=== PATIENT | male | born 1945 | race Caucasian/White ===

== ENCOUNTER 2016-10-27 09:55 | Emergency (ER) | payer MEDICARE ==
[~2016-10-27] VITALS: Ht 188 cm; Wt 81.8 kg
[~2016-10-27 09:55] MED LIST: ASPIRIN 81M81 MG/TA2 PO; BYSTOLIC10 MG PO; PRINIVIL20 MG PO; ZOCOR 40MG40 MG PO
[2016-10-27 09:58] VITALS: BP 179/87; TEMP 98.1
[2016-10-27] MEDS ORDERED: AMOXICILLIN 8751 TAB PO (11:28)
[2016-10-27] MEDS ORDERED: NORCO 325 MG-51 TAB PO (11:28)
[2016-10-27 11:53] VITALS: PULSE 56
== END 2016-10-27 11:53 | disposition home or self-care (01) ==
LOC: COL.ER 09:55
DX: S68.111A Complete traumatic metacarpophalangeal amputation of left index finger, initial encounter (principal); E78.00 Pure hypercholesterolemia, unspecified; I10 Essential (primary) hypertension; Z79.82 Long term (current) use of aspirin; Z23 Encounter for immunization; W26.8XXA Contact with other sharp object(s), not elsewhere classified, initial encounter

== ENCOUNTER → 2016-11-06 | Outpatient (CLI) | payer MEDICARE, OTHER ==
[~2016-11-06] MED LIST changes: +AMOXICILLIN 8751 TAB PO; +NORCO 325 MG-51 TAB PO
== END ==
LOC: COL.RAD 07:30
DX: Z13.6 Encounter for screening for cardiovascular disorders (principal); I71.9 Aortic aneurysm of unspecified site, without rupture; I10 Essential (primary) hypertension; Z82.49 Family history of ischemic heart disease and other diseases of the circulatory system

== ENCOUNTER → 2016-11-15 | Outpatient (CLI) | payer MEDICARE, OTHER | LOC: COL.RAD 10:27 | DX: I71.4 Abdominal aortic aneurysm, without rupture (principal); N40.1 Benign prostatic hyperplasia with lower urinary tract symptoms; K44.9 Diaphragmatic hernia without obstruction or gangrene; K22.8 Other specified diseases of esophagus | CPT/HCPCS: Q9967 ==

== ENCOUNTER 2022-04-08 12:11 | Emergency (ER) | payer MEDICARE, OTHER ==
[~2022-04-08] VITALS: Ht 188 cm; Wt 88.6 kg
[2022-04-08 12:23] VITALS: TEMP 97.6
[2022-04-08 12:47] LABS: BASO # 0.1 K/mm3 (0.0-0.2); BASO % 0.6 % (0.0-2.0); EOS % 0.4 % (0.0-4.0); GRAN # 6.7 K/mm3 (1.4-6.5); GRAN % 81.7 % (42.2-75.2); HEMOGLOBIN 13.4 g/dl (13.5-18.0); MEAN CELL VOLUME 93 fl (80.0-100.0); MEAN CORPUSCULAR HEMOGLOBIN 32 pg (27-31); MEAN CORPUSCULAR HGB CONC 34 g/dl (33.0-37.0); MEAN PLATELET VOLUME 9.5 fl (7.4-10.4); MONO # 0.4 K/mm3 (0.1-0.6); MONO % 4.8 % (1.7-9.3); PLATELET COUNT 195 K/mm3 (130-400)
[2022-04-08 12:52] LABS: COLLECTION METHOD CLEAN CATCH
[2022-04-08 13:02] LABS: BILIRUBIN,TOTAL 0.7 mg/dL (0.2-1.2); C-REACTIVE PROTEIN 0.17 mg/dL (0.00-0.50); CALCIUM 9.1 mg/dL (8.4-10.2); CREATININE, serum 1.37 mg/dL (0.72-1.25); TOTAL PROTEIN 7.6 gm/dL (6.2-8.1)
[2022-04-08 13:10] LABS: MUCOUS Present (NOT PRESENT); SQUAMOUS EPITHELIAL 0-2 /hpf (0-10); URINE BACTERIA Rare /hpf (NONE SEEN)
[2022-04-08 13:11] LABS: URINE APPEARANCE Clear (CLEAR/HAZY); URINE BLOOD 2+ (NEGATIVE); URINE COLOR Yellow (YELLOW); URINE GLUCOSE Negative (NEGATIVE); URINE KETONE Negative (NEGATIVE); URINE NITRATE Negative (NEGATIVE); URINE PROTEIN(semi-quant) Negative (NEGATIVE); URINE UROBILINOGEN 0.2 E.U/dL (0.2-1.0)
[2022-04-08 17:03] VITALS: BP 136/69; PULSE 55
== END 2022-04-08 17:03 | disposition home or self-care (01) ==
LOC: COL.ER 12:11
PROVIDERS: Nurse Practitioner
DX: N13.2 Hydronephrosis with renal and ureteral calculous obstruction (principal)
CPT/HCPCS: Q9967